=== PATIENT | male | born 1960 | race Caucasian/White ===

== ENCOUNTER → 2019-01-18 | Outpatient (CLI) | payer BC ==
--- NOTE | 2019-01-19 08:32 | RAD ---
Bilateral lower extremity arterial ultrasound, 01/18/2019: HISTORY: Peripheral vascular disease, smoker, left calf claudication Duplex evaluation of the major arteries in both lower extremities was performed including grayscale, color-flow and spectral Doppler analysis. There are mild scattered calcific plaques bilaterally. On the right, the common femoral, superficial femoral and popliteal arteries demonstrate triphasic Doppler waveforms. No significant focal velocity acceleration is seen to suggest significant focal stenosis. Patent right posterior tibial, peroneal and anterior tibial arteries are present in the lower leg with triphasic Doppler waveforms. The right dorsalis pedis artery demonstrates a similar triphasic Doppler waveform. On the left, the common femoral artery demonstrates a triphasic Doppler waveform. There is moderate atherosclerotic plaquing in the mid and distal left superficial femoral artery. No high-grade focal stenosis was identified. There is degradation of the Doppler waveforms at and distal to the distal left superficial femoral artery level. The waveforms become monophasic and of lower amplitude than those on the right. The anterior tibial, posterior tibial, peroneal and dorsalis pedis arteries are patent demonstrating monophasic Doppler waveforms. IMPRESSION: 1. Mild scattered atherosclerotic plaquing in the right lower extremity without significant arterial occlusive disease. 2. Moderate atherosclerotic plaquing in the left superficial femoral artery with moderate degradation of the Doppler waveforms at and distal to the left distal superficial femoral artery level. Electronically signed by: Abdiel Dockery MD (01/19/2019 8:29 AM) [facility]
== END | disposition home or self-care (01) ==
LOC: US 15:32
PROVIDERS: ATTEND Family Medicine
DX: I70.293 Other atherosclerosis of native arteries of extremities, bilateral legs (principal); F17.200 Nicotine dependence, unspecified, uncomplicated
CPT/HCPCS: 93925